=== PATIENT | female | born 1950 | race African-American/Black ===

== ENCOUNTER 2018-10-31 14:12 | Outpatient (CLI) ==
[2016-02-25 10:41] VITALS: BMI 26.1
--- NOTE | 2018-10-31 14:44 | DI ---
EXAM: Two views of the left wrist. History: Left wrist pain. Findings: Severe atherosclerotic vascular calcifications. Osteopenia. No acute fracture or disloca tion. Mild to moderate polyarticular joint space narrowing. No erosive osseous changes. Impression: 1. No acute osseous abnormality. 2. Mild to moderate polyarticular arthritis. 3. Severe atherosclerotic vascular disease
--- NOTE | 2018-10-31 14:44 | DI ---
EXAM: Two views of the right wrist. History: Right wrist pain Findings: Osteopenia. Severe atherosclerotic vascular calcifications. Healing fracture of the dist al right ulnar shaft with incomplete bony bridging. No acute fracture or dislocation. Widening of t he scapholunate interval. Sclerosis of the lunate bone. Mild to moderate polyarticular joint space narrowing. Impression: 1. Healing fracture of the distal right ulnar shaft with incomplete bony bridging. 2. Severe atherosclerotic vascular disease. 3. No acute fracture. 4. Widening of the scapholunate interval is most likely degenerative in nature. 5. Sclerosis of the lunate bone suspicious for avascular necrosis.
--- NOTE | 2018-10-31 14:45 | DI ---
EXAM: Two views of the left hand. History: Left hand pain. Comparison: Left hand radiograph 10/22/2014 Findings: Osteopenia. No acute fracture or dislocation. Severe atherosclerotic vascular calcificat ions. Mild to moderate polyarticular joint space narrowing with small osteophytes similar to the mikaela or study. Impression: 1. No acute osseous abnormality. 2. Mild to moderate polyarticular arthritis. 3. Severe atherosclerotic vascular disease. 4. Osteopenia
--- NOTE | 2018-10-31 14:50 | DI ---
EXAM: Right hand two views HISTORY: Multiple joint pain. FINDINGS: Bones are significantly demineralized. No acute fracture or joint dislocation is seen. T here is diffuse arthropathy, slightly more noticeable at the distal interphalangeal joints and the ra diocarpal joints. There is probable scapholunate separation with rotation of the lunate. Heavy vasc ular calcifications are present. Incidental note of a poorly united distal ulnar fracture. IMPRESSION: 1. Demineralization. 2. Arthropathy mainly of the wrist. 3. Vascular calcifications. 4. Poorly united fracture of the distal ulna.
== END 2018-10-31 14:13 | disposition home or self-care (01) ==
LOC: RAD 14:12
PROVIDERS: ATTEND Internal Medicine Rheumatology
DX: M25.50 Pain in unspecified joint (principal); G62.9 Polyneuropathy, unspecified; R53.83 Other fatigue; M19.90 Unspecified osteoarthritis, unspecified site; E83.42 Hypomagnesemia; Z13.1 Encounter for screening for diabetes mellitus; R73.09 Other abnormal glucose; E55.9 Vitamin D deficiency, unspecified; E53.8 Deficiency of other specified B group vitamins; D50.9 Iron deficiency anemia, unspecified; Z51.81 Encounter for therapeutic drug level monitoring
CPT/HCPCS: 36415; 80053; 82306; 82550; 82607; 82746; 83036; 83735; 84439; 84443; 84550; 85025; 85651; 86038; 86200; 86320; 86430